=== PATIENT | male | born 1990 | race Caucasian/White ===

== ENCOUNTER 2024-03-30 04:15 | Day surgery (SDC) | payer OTHER ==
[2024-03-25 12:35] VITALS: BMI 23.7
[2024-03-30] MEDS ORDERED: LACTATED RINGERS SOLUTION 1,000 ML IV SCH (14:00)
[2024-03-30] MEDS ORDERED: ONDANSETRON 4 MG/2 ML VIAL IVPUSH PRN (14:00)
[2024-03-30] MEDS ORDERED: oxyCODONE HCL 5 MG TABLET PO PRN (14:00)
[2024-03-30] MEDS ORDERED: MIDAZOLAM HCL 2 MG/2 ML SINGLE DOSE VIAL ONE (14:19)
[2024-03-30] MEDS ORDERED: PROPOFOL 40 ML ONE (14:19)
[2024-03-30] MEDS ORDERED: FENTANYL CITRATE/PF 50 MCG/ML VIAL ONE (14:19)
[2024-03-30] MEDS ORDERED: GENTAMICIN SO4 80 MG/2 ML VIAL ONE (14:26)
[2024-03-30] MEDS ORDERED: PROPOFOL 20 ML ONE (14:57)
[2024-03-30 16:28] VITALS: RESP 16
[2024-03-30 16:45] VITALS: TEMP 98
[2024-03-30 17:32] VITALS: BP 152/100; PULSE 60
== END 2024-03-30 18:03 | disposition home or self-care (01) ==
LOC: JASU-SURG 04:15
PROVIDERS: ATTEND Urology
PROC: 0TC78ZZ Extirpation of Matter from Left Ureter, Via Natural or Artificial Opening Endoscopic (ICD-10-PCS; principal; 2024-03-30 14:00)
PROC: 0T778DZ Dilation of Left Ureter with Intraluminal Device, Via Natural or Artificial Opening Endoscopic (ICD-10-PCS; 2024-03-30 14:00)
PROC: BT1FYZZ Fluoroscopy of Left Kidney, Ureter and Bladder using Other Contrast (ICD-10-PCS; 2024-03-30 14:00)
DX: N20.2 Calculus of kidney with calculus of ureter (principal)
CPT/HCPCS: 76000-TC-FY; 88300-TC; 94760; C1758; C2617

== ENCOUNTER 2024-04-13 04:36 | Day surgery (SDC) | payer OTHER ==
[2024-04-10 11:03] VITALS: BMI 23.7
[2024-04-13] MEDS ORDERED: MIDAZOLAM HCL 2 MG/2 ML SINGLE DOSE VIAL ONE ×2 (16:16→16:26)
[2024-04-13] MEDS ORDERED: FENTANYL CITRATE/PF 50 MCG/ML VIAL ONE (16:23)
[2024-04-13] MEDS ORDERED: PROPOFOL 20 ML ONE (16:27)
[2024-04-13] MEDS ORDERED: KETAMINE HCL 200 MG/20 ML VIAL ONE (16:32)
[2024-04-13 18:10] VITALS: RESP 18; TEMP 97.8
[2024-04-13 18:46] VITALS: BP 156/89; PULSE 62
== END 2024-04-13 18:31 | disposition home or self-care (01) ==
LOC: JASU-SURG 04:36
PROVIDERS: ATTEND Urology
PROC: 0TF4XZZ Fragmentation in Left Kidney Pelvis, External Approach (ICD-10-PCS; principal; 2024-04-13 15:00)
DX: N20.0 Calculus of kidney (principal)